=== PATIENT | female | born 1935 | race Caucasian/White ===

== ENCOUNTER 2025-06-13 14:47 | Outpatient (REF) | payer MEDICARE, SELFPAY ==
--- OUTSIDE RECORDS SUMMARY | 2025-06-25 15:16 | XMS_ITS | Encounter Summary ---
Author Organization [facility] Address [address] [place] [address] [place] [phone] Phone Care Team Providers Care Consultant Rn Name Role Phone StephenGavin armijo Primary Care Provider [phone] Dominique Cardoso PA-C Unavailable [phone] Dalia Gavin Barnes DO Primary Care Provider [phone] Encounter Details Date Type Department Care Team (Latest Contact Info) Description 03/07/2018 Transcribe Orders [facility] [address] [place] [address] Charisse Tiwari PA-C [address] [place] [address] [email or web address] Routine general medical examination at a health care facility (Primary Dx) Social History Tobacco Use Types Packs/Day Years Used Date Smoking Tobacco: Never Assessed Comments Unknown Sex and Gender Information Value Date Recorded Sex Assigned at Female 10/23/2018 11:17 AM EST Legal Sex Female 10:14 PM EDT Gender Identity Female 10/23/2018 11:17 AM EST Sexual Orientation Straight 06/18/2025 9: 24 AM EDT documented as of this encounter Plan of Treatment Upcoming Encounters Date Type Department Care Team (Late st Contact Info) Description 06/11/2025 Procedure Pass [facility] [address] [place] [address] 06/26/2025 11:00 AM EDT Home Care Visit [facility] [address] [place] [phone] Tanisha Warner, PT [address] [place] [address] 07/01/2025 12:45 AM EDT Home Care Visit [facility] [address] [place] [phone] Tanisha Warner, PT [address] [place] [address] 07/03/2025 3:45 AM EDT Home Care Visit [facility] [address] [place] [phone] Tanisha Warner, PT [address] [place] [address] 07/08/2025 12:45 AM EDT Home Care Visit [facility] [address] [place] [phone] Tanisha Warner, PT [address] [place] [address] 07/10/2025 1:30 AM EDT Home Care Visit [facility] [address] [place] [phone] Tanisha Warner, PT [address] [place] [address] 07/15/2025 Home Care Visit [facility] [address] [place] [phone] Tanisha Warner, PT [address] [place] [address] 07/17/2025 1:00 AM EDT Appointment [facility] [address] [place] [phone] Tanisha Warner, PT [address] [place] [address] 08/13/2025 11:30 AM EDT Office Visit [facility] [address] [place] [address] Dominique Cardoso PA-C [address] [place] [address] [email or web address] 08/28/2025 12:40 PM EDT Office Visit [facility] [address] [place] [address] [address] Floor, [address] [address] Pravin Galvan MD [address] [address] 01/26/2026 11:30 AM EST Appointment [facility], [address] [address] Gavin Gómez, [address] [facility] [address] [place] [address] 06/29/2026 11:00 AM EDT Office Visit [facility] [address] [place] [address] [address]rd Floor, [address] [address] Patricio Martin MD, MS [address] [address] documented as of this encounter Visit Diagnoses Diagnosis Routine general medical examination at a health care facility- Primary documented in this encounter Additional Health Concerns Infection Onset Date Last Indicated Resolved Time CoV-Risk Comment:Per note documentation 05/16/2025 05/16/2025 3:31 PM EDT documented as of this encounter Care Teams Consultant Rn Relationship Specialty Start Date End Date Gavin Gómez DO Molly [email or web address] PCP - General Internal Medicine 03/07/18 05/12/25 Gavin Gómez DO [address] [place] [address] [email or web address] PCP - General Internal Medicine 05/13/25 Dominique Cardoso PA-C [address] [place] [address] [email or web address] Physician [employer] 09/26/24 documented as of this encounter Additional Source Comments The information contained in this document represents components of the legal health record. It is not the complete legal health record.[facility]
[2025-06-26 06:38] LABS: FIT Date 1 07/17/25; FIT Date 2 07/18/25; FIT Int Ctl YES; FIT Lot M01342; FIT1 POSITIVE (NEGATIVE); FIT2 POSITIVE (NEGATIVE)
== END 2025-06-13 14:48 | disposition home or self-care (01) ==
LOC: HO.MANLNP 14:47
PROVIDERS: Visit Provider Internal Medicine
DX: Z12.11 Encounter for screening for malignant neoplasm of colon (principal)
CPT/HCPCS: 82274